=== PATIENT | male | born 1990 | race Hispanic/Latino ===

== ENCOUNTER 2017-10-14 11:34 | Emergency (ER) | payer SELFPAY ==
[2017-10-14] MEDS ORDERED: XYLOCAINE 1% 20 mL INFILTRATI ONE (16:53)
[2017-10-14] MEDS ORDERED: ZOFRAN ODT PO ONE (16:53)
[2017-10-14] MEDS ORDERED: NORCO 10/325 PO ONE (16:53)
--- NOTE | 2017-10-14 18:20 | Emergency Department Report ---
ED General Adult HPI - General Chief complaint: Skin/Abscess/Foreign Body Stated complaint: GROWTH INNER LEG Time Seen by Provider: 10/14/17 16:47 Source: patient Mode of arrival: Ambulatory Limitations: No Limitations - History of Present Illness Initial comments: Patient presents to the ED with a chief complaint of an abscess. Patient states she's had abscess to his left thigh for the last 2 days which he started drinking at home to no avail. Patient denies fever. Patient has a history of necrotizing fasciitis that was 12 years ago to his right arm. He states this abscess is nothing like that. -: Gradual Location: lower extremity Radiation: non-radiation Severity scale (0 -10): 4 Quality: aching, dull Consistency: constant Improves with: none Worsens with: none Associated Symptoms: denies other symptoms Treatments Prior to Arrival: none - Related Data Previous Rx's Medication Instructions Recorded Last Taken Type HYDROcodone/ACETAMINOPHEN [Dobson 1 each PO Q6HR PRN #12 tablet 10/14/17 Unknown Rx 5-325 Tablet] Sulfamethoxazole/Trimethoprim 2 each PO BID #28 tablet 10/14/17 Unknown Rx [Bactrim DS TAB] Allergies Allergy/AdvReac Type Severity Reaction Status Date / Time No Known Allergies Allergy Unverified 10/14/17 11:39 ED Review of Systems ROS: Stated complaint: GROWTH INNER LEG Other details as noted in HPI Comment: All other systems reviewed and negative Constitutional: denies: chills, fever Eyes: denies: eye pain, eye discharge, vision change ENT: denies: ear pain, throat pain Respiratory: denies: cough, shortness of breath, wheezing Cardiovascular: denies: chest pain, palpitations Endocrine: no symptoms reported Gastrointestinal: denies: abdominal pain, nausea, diarrhea Genitourinary: denies: urgency, dysuria Musculoskeletal: denies: back pain, joint swelling, arthralgia Skin: other (abscess). denies: rash, lesions Neurological: denies: headache, weakness, paresthesias Psychiatric: denies: anxiety, depression Hematological/Lymphatic: denies: easy bleeding, easy bruising ED Past Medical Hx - Past Medical History Hx Asthma: Yes Hx COPD: Yes Additional medical history: necrotizing fasciitis - Social History Smoking Status: Current Every Day Smoker Substance Use Type: None - Medications Home Medications: Home Medications Medication Instructions Recorded Confirmed Last Taken Type HYDROcodone/ACETAMINOPHEN [Dobson 1 each PO Q6HR PRN #12 tablet 10/14/17 Unknown Rx 5-325 Tablet] Sulfamethoxazole/Trimethoprim 2 each PO BID #28 tablet 10/14/17 Unknown Rx [Bactrim DS TAB] ED Physical Exam - General Limitations: No Limitations General appearance: alert, in no apparent distress - Head Head exam: Present: atraumatic, normocephalic - Eye Eye exam: Present: normal appearance - ENT ENT exam: Present: mucous membranes moist - Neck Neck exam: Present: normal inspection - Respiratory Respiratory exam: Present: normal lung sounds bilaterally. Absent: respiratory distress - Cardiovascular Cardiovascular Exam: Present: regular rate, normal rhythm. Absent: systolic murmur, diastolic murmur, rubs, gallop - GI/Abdominal GI/Abdominal exam: Present: soft, normal bowel sounds - Rectal Rectal exam: Present: deferred - Extremities Exam Extremities exam: Present: normal inspection - Back Exam Back exam: Present: normal inspection - Neurological Exam Neurological exam: Present: alert, oriented X3, CN II-XII intact. Absent: motor sensory deficit - Psychiatric Psychiatric exam: Present: normal affect, normal mood - Skin Skin exam: Present: warm, other (abscess to the left proximal inner thigh with no involvement of the perineum there is no crepitus or necrosis). Absent: rash ED Course Vital Signs 10/14/17 11:39 Temperature 99 F Pulse Rate 88 Respiratory 18 Rate Blood Pressure 161/84 O2 Sat by Pulse 99 Oximetry - I & D Left Upper Proximal Thigh I & D Procedure: betadine prep Progress: Abscess was drained with 11 blade lidocaine was used for anesthetic Patient cannot tolerate packing so was not done Area of I&D would be covered with a sterile dressing ED Medical Decision Making - Medical Decision Making Discussed plan of care with patient Critical care attestation.: If time is entered above; I have spent that time in minutes in the direct care of this critically ill patient, excluding procedure time. ED Disposition Clinical Impression: Abscess Disposition: DC-01 TO HOME OR SELFCARE Is pt being admited?: No Does the pt Need Aspirin: No Condition: Stable Instructions: Abscess (ED) Additional Instructions: return if worse Prescriptions: HYDROcodone/ACETAMINOPHEN [Dobson 5-325 Tablet] 1 each PO Q6HR PRN #12 tablet PRN Reason: pain Sulfamethoxazole/Trimethoprim [Bactrim DS TAB] 2 each PO BID #28 tablet Referrals: PRIMARY CARE, [Primary Care Provider] - 3-5 Days [facility] [Outside] - 3-5 Days [facility] [Outside] - 3-5 Days Time of Disposition: 18:23
[2017-10-14] MEDS ORDERED: TRIPLE ANTIBIOTIC TP ONE (18:47)
[2017-10-14 18:54] VITALS: BP 146/82
[2017-10-14] MEDS ORDERED: POLYSPORIN TP ONE (19:43)
== END 2017-10-14 18:53 | disposition home or self-care (01) ==
LOC: ED 11:34
DX: L02.416 Cutaneous abscess of left lower limb (principal); J44.9 Chronic obstructive pulmonary disease, unspecified; M72.6 Necrotizing fasciitis; F17.200 Nicotine dependence, unspecified, uncomplicated; Z79.899 Other long term (current) drug therapy
CPT/HCPCS: A6250; Q0162